=== PATIENT | female | born 1970 | race Caucasian/White ===

== ENCOUNTER 2022-05-21 08:33 | Outpatient (CLI) | payer OTHER, SELFPAY | END 2022-05-21 08:34 | disposition home or self-care (01) | LOC: LKVREF 08:34 | PROVIDERS: PCP Emergency Medicine; Visit Provider Emergency Medicine | DX: E03.9 Hypothyroidism, unspecified (principal); E78.5 Hyperlipidemia, unspecified | CPT/HCPCS: 84443 ==

== ENCOUNTER 2023-04-01 09:40 | Outpatient (CLI) | payer OTHER, SELFPAY | END 2023-04-01 09:41 | disposition home or self-care (01) | LOC: NFLDREF 04-03 06:20 | PROVIDERS: PCP Emergency Medicine; Referring Provider Emergency Medicine; Visit Provider Emergency Medicine | DX: Z00.00 Encounter for general adult medical examination without abnormal findings (principal); E78.5 Hyperlipidemia, unspecified; E03.9 Hypothyroidism, unspecified | CPT/HCPCS: 80048; 80061; 84443 ==

== ENCOUNTER 2023-08-21 08:45 | Outpatient (CLI) | payer OTHER, SELFPAY | END 2023-08-21 08:46 | disposition home or self-care (01) | LOC: NFLDREF 08-24 12:37 | PROVIDERS: PCP Emergency Medicine; Referring Provider Emergency Medicine; Visit Provider Emergency Medicine | DX: E78.5 Hyperlipidemia, unspecified (principal) | CPT/HCPCS: 80061 ==

== ENCOUNTER 2023-12-17 07:18 | Outpatient (CLI) | payer OTHER, SELFPAY ==
--- NOTE | 2023-12-17 08:30 | W.ANESCHARGE ---
Anesthesia Charges Start Date/Time Anesthesia Start Date: 12/17/23 Anesthesia Start Time: 07:59 Stop Date/Time Anesthesia Stop Date: 12/17/23 Anesthesia Stop Time: 08:26
--- NOTE | 2023-12-17 10:07 | W.ANESCHARGE ---
Anesthesia Charges Start Date/Time Anesthesia Start Date: 12/17/23 Anesthesia Start Time: 07:59 Stop Date/Time Anesthesia Stop Date: 12/17/23 Anesthesia Stop Time: 08:26
== END 2023-12-17 07:19 | disposition home or self-care (01) ==
LOC: OP CLINIC 07:18
PROVIDERS: PCP Emergency Medicine; Visit Provider Surgery
DX: Z12.11 Encounter for screening for malignant neoplasm of colon (principal); K63.5 Polyp of colon; Z86.010 Personal history of colon polyps
CPT/HCPCS: 00811; 45380; 45385; 88305; J2704

== ENCOUNTER 2024-05-25 10:38 | Outpatient (CLI) | payer OTHER, SELFPAY ==
--- OUTSIDE RECORDS SUMMARY | 2024-05-25 10:43 | XMS_ITS | Clinical Summary ---
Author Organization [facility] Address [address] [place] [id number] Care Team Providers Care Felt Strip Finisher Name Role Phone No Ref-Primary, Physician Primary Care Provider Allergies No known active allergies Medications [place]-3 Fatty Acids (FISH OIL PO) Active LEVOTHYROXINE SODIUM PO Take 75 mcg by mouth daily Active Multiple Vitamins-Mineral s (MULTIVITAMIN ADULT PO) Take by mouth daily Active Cholecalciferol (VITAMIN D-3 PO) Take 1,000 Units by mouth daily Active Active Problems Problem Noted Date Diagnosed Date Menometrorrhagia 05/24/2017 Abnormal finding on ultrasound 05/24/2017 Endometrial polyp 05/24/2017 Social History Tobacco Use Types Packs/Day Years Used Date Smoking Tobacco: Never Smokeless Tobacco: Never Alcohol Use Standard Drinks/Week Comments Yes 0 (1 standard drink = 0.6 oz pur e alcohol) Comments No Sex and Gender Information Value Date Recorded Sex Assigned at Not on file Legal Sex Female 1:05 PM CDT Gender Identity Not on file Sexual Orientation Not on file Last Filed Vital Signs Vital Sign Reading Time Taken Comments Blood Pressure 111/78 05/25/2017 10:00 AM CDT Pulse - - Temperature 36.2 ??C (97.1 ??F) 05/25/2017 8:37 AM CD T Respiratory Rate 16 05/25/2017 10:00 AM CDT Oxygen Saturation 100% 05/25/2017 10:00 AM CDT Inhaled Oxygen Concentration - - Weight 63 kg (139 lb) 05/25/2017 6:44 AM CDT Height 168.9 cm (5' 6.5) 05/25/2017 6:44 AM CDT Body Mass Index 22.1 05/25/2017 6:44 AM CDT Plan of Treatment Not on file Care Teams Felt Strip Finisher Relationship Specialty Start Date End Date No Ref-Primary, Physician PCP - General 05/13/17
--- OUTSIDE RECORDS SUMMARY | 2024-05-25 10:43 | XMS_ITS | Referral Summary ---
Author Organization [facility] Address [address] [place] [id number] Care Team Providers Care Electronic Engineering Draftsperson Name Role Phone No Ref-Primary, Physician Primary Care Provider Allergies No known active allergies Medications [place]-3 Fatty Acids (FISH OIL PO) Active LEVOTHYROXINE [...] of Treatment Not on file Care Teams Electronic Engineering Draftsperson Relationship Specialty Start Date End Date No Ref-Primary, Physician PCP - General 05/13/17
== END 2024-05-25 10:39 | disposition home or self-care (01) ==
PROVIDERS: PCP Emergency Medicine; Visit Provider Emergency Medicine
DX: E78.2 Mixed hyperlipidemia (principal); E03.8 Other specified hypothyroidism; E06.3 Autoimmune thyroiditis
CPT/HCPCS: 80048; 80061; 83695; 84443

== ENCOUNTER 2024-10-25 08:22 | Outpatient (CLI) | payer OTHER, SELFPAY | END 2024-10-25 08:23 | disposition home or self-care (01) | LOC: NFLDREF 10-26 05:13 | PROVIDERS: PCP Emergency Medicine; Referring Provider Emergency Medicine; Visit Provider Emergency Medicine | DX: E78.2 Mixed hyperlipidemia (principal); Z11.1 Encounter for screening for respiratory tuberculosis | CPT/HCPCS: 80061; 86480 ==